=== PATIENT | female | born 1955 | race Caucasian/White ===

== ENCOUNTER → 2020-02-17 12:24 | Outpatient (CLI) | payer BC, SELFPAY ==
--- NOTE | ~2020-02-17 | MM_ITS ---
EXAMINATION: MM screening [facility] BI w yolanda HISTORY: Screening mammogram TECHNIQUE: Craniocaudal and mediolateral oblique 3-D tomosynthesis images were obtained and synthetic 2-D images were generated. CAD analysis was submitted and interpreted. COMPARISON: 12/13/2018 diagnostic left digital mammogram 12/04/2018, 12/29/2017, 12/27/2016 bilateral digital screening mammogram examinations BREAST PARENCHYMAL COMPOSITION: There are scattered areas of fibroglandular density. FINDINGS: There is no evidence of suspicious mass, calcification, or architectural distortion to sugg est malignancy in either breast. There has been no suspicious interval change. IMPRESSION: 1. No mammographic evidence of malignancy. 2. Recommend routine screening mammography in one year. BI-RADS Category 1: Negative Reviewed, dictated and finalized at location A.
== END ==
PROVIDERS: PCP Nurse Practitioner Adult Health; Visit Provider Nurse Practitioner Adult Health
DX: Z12.31 Encounter for screening mammogram for malignant neoplasm of breast (principal)
CPT/HCPCS: 77063; 77067

== ENCOUNTER → 2021-02-03 15:09 | Outpatient (CLI) | payer BC, SELFPAY ==
--- NOTE | ~2021-02-03 | MM_ITS ---
EXAMINATION: MM screening [facility] BI w yolanda HISTORY: Screening mammogram TECHNIQUE: Craniocaudal and mediolateral oblique 3-D tomosynthesis images were obtained and synthetic 2-D images were generated. CAD analysis was submitted and interpreted. COMPARISON: 02/17/2020 bilateral digital screening mammogram 12/13/2018 diagnostic left digital mammogram 12/04/2018, 12/29/2017, 12/27/2016, 12/15/2015 bilateral digital screening mammogram examinations BREAST PARENCHYMAL COMPOSITION: There are scattered areas of fibroglandular density. FINDINGS: Occasional bilateral benign calcifications... There is no evidence of suspicious mass, calc ification, or architectural distortion to suggest malignancy in either breast. There has been no susp icious interval change. IMPRESSION: 1. No mammographic evidence of malignancy. 2. Recommend routine screening mammography in one year. BI-RADS Category 2: Benign finding(s). Reviewed, dictated and finalized at location A. SIGHT SPECIALIST
== END ==
PROVIDERS: PCP Nurse Practitioner Adult Health; Visit Provider Nurse Practitioner Adult Health
DX: Z12.31 Encounter for screening mammogram for malignant neoplasm of breast (principal)
CPT/HCPCS: 77063; 77067

== ENCOUNTER → 2021-10-04 08:31 | Outpatient (CLI) | payer MEDICARE, BC, SELFPAY ==
[2021-10-04 19:00] LABS: SARS-CoV-2 RNA PCR Negative
== END ==
PROVIDERS: PCP Nurse Practitioner Adult Health; Visit Provider Nurse Practitioner Adult Health
DX: R05.9 Cough, unspecified (principal); Z20.822 Contact with and (suspected) exposure to COVID-19
CPT/HCPCS: C9803; U0003; U0005

== ENCOUNTER 2021-10-04 16:45 | Outpatient (CLI) | payer MEDICARE, BC, SELFPAY ==
--- NOTE | ~2021-10-04 | XR_ITS ---
EXAMINATION: XR chest 2V 10/04/2021 17:13 INDICATION: Cough PROCEDURE: 2 view chest COMPARISON: 03/02/2012 FINDINGS: The lungs are clear. The cardiomediastinal silhouette is within normal limits. There are no pleural effusions. There is no pneumothorax suspected. IMPRESSION: 1: NO ACUTE CARDIOPULMONARY DISEASE. Reviewed, dictated and finalized at location A. E OPERATOR
== END 2021-10-04 16:46 | disposition home or self-care (01) ==
LOC: ANHIMG 16:57
PROVIDERS: PCP Nurse Practitioner Adult Health; Visit Provider Nurse Practitioner Adult Health
DX: R05.9 Cough, unspecified (principal)
CPT/HCPCS: 71046; C9803; U0003; U0005

== ENCOUNTER → 2021-10-05 07:52 | Outpatient (CLI) | payer MEDICARE, BC, SELFPAY ==
[2021-10-05 10:25] LABS: Influenza Control Positive
== END ==
PROVIDERS: PCP Nurse Practitioner Adult Health; Visit Provider Nurse Practitioner Adult Health
DX: R05.9 Cough, unspecified (principal)
CPT/HCPCS: 87804

== ENCOUNTER → 2022-02-07 07:12 | Outpatient (CLI) | payer MEDICARE, BC, SELFPAY ==
--- NOTE | ~2022-02-07 | MM_ITS ---
EXAMINATION: MM screening [facility] w yolanda HISTORY: Screening mammogram, family history of breast cancer in her mother. TECHNIQUE: Craniocaudal and mediolateral oblique 3-D tomosynthesis images were obtained and synthetic 2-D images were generated. CAD analysis was submitted and interpreted. COMPARISON: 02/03/2021, 02/17/2020, 12/13/2018, 12/04/2018 BREAST PARENCHYMAL COMPOSITION: There are scattered areas of fibroglandular density. FINDINGS: There is no evidence of suspicious mass, calcification, or architectural distortion to sugg est malignancy in either breast. There has been no suspicious interval change. IMPRESSION: 1. No mammographic evidence of malignancy. 2. Recommend routine screening mammography in one year. BI-RADS Category 1: Negative Reviewed, dictated and finalized at location A.
== END ==
PROVIDERS: PCP Nurse Practitioner Adult Health; Visit Provider Nurse Practitioner Adult Health
DX: Z12.31 Encounter for screening mammogram for malignant neoplasm of breast (principal)
CPT/HCPCS: 77063; 77067

== ENCOUNTER → 2023-02-10 07:14 | Outpatient (CLI) | payer MEDICARE, BC, SELFPAY ==
--- NOTE | ~2023-02-10 | MM_ITS ---
EXAMINATION: MM screening [facility] BI w yolanda HISTORY: Screening mammogram TECHNIQUE: Craniocaudal and mediolateral oblique 3-D tomosynthesis images were obtained and synthetic 2-D images were generated. CAD analysis was submitted and interpreted. COMPARISON: 02/07/2022, 02/03/2021, 02/17/2020 bilateral screening mammogram examinations BREAST PARENCHYMAL COMPOSITION: There are scattered areas of fibroglandular density. FINDINGS: Occasional bilateral benign calcifications. There is no evidence of suspicious mass, calcif ication, or architectural distortion to suggest malignancy in either breast. There has been no suspic ious interval change. IMPRESSION: 1. No mammographic evidence of malignancy. 2. Recommend routine screening mammography in one year. BI-RADS Category 2: Benign finding(s). Reviewed, dictated and finalized at location A.
== END ==
PROVIDERS: PCP Nurse Practitioner Family; Visit Provider Nurse Practitioner Family
DX: Z12.31 Encounter for screening mammogram for malignant neoplasm of breast (principal)
CPT/HCPCS: 77063; 77067

== ENCOUNTER 2024-01-18 15:46 | Emergency (ER) | payer MEDICARE, BC, SELFPAY ==
--- NOTE | ~2024-01-18 | XR_ITS ---
EXAMINATION: XR knee RT min 4V DATE: 01/18/2024 16:18 INDICATION: Right knee injury. TECHNIQUE: 5 views of right knee were obtained. COMPARISON: Right knee radiographs 03/02/2012 FINDINGS: Bone alignment is normal. No fracture. There is mild tricompartmental osteoarthritis. No kn ee joint effusion. IMPRESSION: 1. Mild right knee osteoarthritis. Reviewed, dictated and finalized at location E. COORDINATOR
--- NOTE | 2024-01-18 15:47 | ED.FALL ---
HPI - Fall General Chief Complaint: Extremity Injury, Lower Stated Complaint: FALL Time Seen by Provider: 01/18/24 15:46 Source: patient Mode of arrival: ambulatory Limitations: no limitations History of Present Illness HPI Narrative: Domenico is a 68-year-old female patient presenting to the clinic today with complaints of a fal from her porch onto concrete injuring the right knee. She has abrasions to the right knee with some bruising and swelling to the is superior anterior knee. Related Data Home Medications Medication Instructions Recorded Confirmed multivitamin (Multiple Vitamins 1 tablet PO DAILY 04/14/20 01/18/24 tablet) simvastatin 10 mg tablet 10 mg PO DAILY 04/14/20 01/18/24 triamterene 75 1 tablet PO DAILY 08/08/23 01/18/24 mg-hydrochlorothiazide 50 mg tablet Allergies Allergy/AdvReac Type Severity Reaction Status Date / Time No Known Allergies Allergy Mild Verified 01/18/24 15:48 Review of Systems Review of Systems: Pertinent positives per HPI. Patient denies any fever, chills, rash, headache, visual changes, dizziness, cough, runny nose, sore throat, shortness of breath, chest pain, palpitations, nausea, vomiting, diarrhea, constipation, abdominal pain, or any urinary issues. [facility] Past Medical History Medical History (Updated 01/18/24 @ 16:02 by Henrry Rodriguez APRN) Hypertension Surgical History Surgical History History of colonoscopy History of dilation and curettage Family History Family History Mother Breast cancer Social History Social History Smoking status: Never smoker Alcohol intake: never Substance use: never Comments At the time of my signature, I reviewed and agree with the nursing past medical, surgical, social, and family history. There is no relevant family history pertinent to the patient complaint. Exam Narrative: General: Well-developed, well nourished, in no apparent distress Head: Normocephalic, atraumatic. Cardio: Regular rate and rhythm, s1 and s2 normal, no murmur appreciated. Resp: Clear to auscultation bilaterally, no rhonchi, rales, wheezing or rubs. Musculoskeletal: No deformity, tender to palpation over the superior anterior knee, bruising and swelling noted to the superior anterior knee, abrasions to the anterior knee, grossly normal range of motion, muscle strength strong and equal, peripheral pulse strong, no edema, no cyanosis, normal gait and station Course Course Emergency Course: Portions of this record may have been created with voice recognition software. Level of Care: Express Care Visit Vital Signs Vital signs: Vital signs reviewed MDM - Fall MDM Narrative Medical decision making narrative: At the time of visit patient is resting comfortably on the exam table. Patient appears to be nontoxic. Diagnostics: Right knee x-ray was performed and is negative for any sign of fracture or malalignment. Does show some mild tricompartmental osteoarthritis Plan: supportive measures were discussed with the patient and they voiced understanding discharge instructions and agrees to treatment plan. Return precautions reviewed Differential Diagnosis Differential diagnosis: Likely other (Ground level fall, knee contusion, knee fracture, knee abrasion) Imaging Data Radiologist's impression: ITS Impressions Knee X-Ray 01/18/24 16:18 IMPRESSION: 1. Mild right knee osteoarthritis. Discharge Plan Discharge Clinical Impression: Contusion of knee, right Qualifiers: Encounter type: initial encounter Qualified Code(s): S80.01XA - Contusion of right knee, initial encounter Abrasion of knee, right Qualifiers: Encounter type: initial encounter Qualified Code(s): S80.211A - Abrasion, right knee, initial encounter Fall with injury
[2024-01-18 15:50] VITALS: BP 149/65; PULSE 77; RESP 18; TEMP 37.2; O2SAT 99
== END 2024-01-18 16:30 | disposition home or self-care (01) ==
PROVIDERS: Emergency Provider Nurse Practitioner Family; PCP Family Medicine
DX: S80.01XA Contusion of right knee, initial encounter (principal); S80.211A Abrasion, right knee, initial encounter; I10 Essential (primary) hypertension; W17.89XA Other fall from one level to another, initial encounter
CPT/HCPCS: 73564; 99213; G0463

== ENCOUNTER 2024-02-12 07:14 | Outpatient (CLI) | payer MEDICARE, BC, SELFPAY ==
--- NOTE | ~2024-02-12 | MM_ITS ---
EXAMINATION: MM screening [facility] BI w yolanda HISTORY: Screening TECHNIQUE: Craniocaudal and mediolateral oblique 3-D tomosynthesis images were obtained and synthetic 2-D images were generated. CAD analysis was submitted and interpreted. COMPARISON: Comparison to multiple prior studies sequentially, with oldest reviewed study dated 06/2019. BREAST PARENCHYMAL COMPOSITION: Not dense: There are scattered areas of fibroglandular density. FINDINGS: There is no evidence of suspicious mass, calcification, or architectural distortion to sugg est malignancy in either breast. There has been no suspicious interval change. IMPRESSION: 1. No mammographic evidence of malignancy. 2. Recommend routine screening mammography in one year. BI-RADS Category 1: Negative Reviewed, dictated and finalized at location A.
== END 2024-02-12 07:15 ==
PROVIDERS: PCP Nurse Practitioner Family; Visit Provider Nurse Practitioner Family
DX: Z12.31 Encounter for screening mammogram for malignant neoplasm of breast (principal)
CPT/HCPCS: 77063; 77067

== ENCOUNTER 2024-08-19 14:06 | Outpatient (CLI) | payer MEDICARE, BC, SELFPAY ==
--- NOTE | ~2024-08-19 | CT_ITS ---
EXAMINATION: CT brain wo/w con DATE: 08/19/2024 14:44 INDICATION: Expressive language disorder. TECHNIQUE: Computed tomography (CT) of the head was performed without and with 100 mL Omnipaque 350 i ntravenous contrast. The mA was adjusted according to patient size. Iterative reconstruction techniqu e was employed. The dose-length product was 1199.14 mGy-cm. COMPARISON: None FINDINGS: There is no intracranial hemorrhage, acute infarction, or abnormal intracranial mass lesion . The ventricles are normal in size. The orbits are normal. The paranasal sinuses are clear. The mast oid air cells are normal. IMPRESSION: 1. Normal brain. Reviewed, dictated and finalized at location A. IMPRESSION: 1. Normal brain.
[2024-08-19 14:27] LABS: Estimated Glomerular Filt Rate 55
== END 2024-08-19 14:07 | disposition home or self-care (01) ==
LOC: MICIMG 14:07
DX: F80.1 Expressive language disorder (principal)
CPT/HCPCS: 70470; Q9967

== ENCOUNTER 2025-02-13 07:18 | Outpatient (CLI) | payer MEDICARE, BC, SELFPAY ==
--- NOTE | ~2025-02-13 | MM_ITS ---
EXAMINATION: MM screening [facility] BI w yolanda HISTORY: Screening TECHNIQUE: Craniocaudal and mediolateral oblique 3-D tomosynthesis images were obtained and synthetic 2-D images were generated. CAD analysis was submitted and interpreted. COMPARISON: Comparison to multiple prior studies sequentially, with oldest reviewed study dated 02/16. BREAST PARENCHYMAL COMPOSITION: Not dense: There are scattered areas of fibroglandular density. FINDINGS: There is no evidence of suspicious mass, calcification, or architectural distortion to sugg est malignancy in either breast. There has been no suspicious interval change. IMPRESSION: 1. No mammographic evidence of malignancy. 2. Recommend routine screening mammography in one year. BI-RADS Category 1: Negative Reviewed, dictated and finalized at location B.
== END 2025-02-13 07:19 | disposition home or self-care (01) ==
LOC: MICIMG 07:19
DX: Z12.31 Encounter for screening mammogram for malignant neoplasm of breast (principal)
CPT/HCPCS: 77063; 77067

== ENCOUNTER 2025-11-21 12:02 | Emergency (ER) | payer MEDICARE, BC, SELFPAY ==
[2025-11-21 12:17] VITALS: BP 135/62; PULSE 77; RESP 16; TEMP 36.5; O2SAT 100
--- NOTE | 2025-11-21 12:25 | ED.URI ---
HPI - URI/Sore Throat General Chief Complaint: Upper Respiratory Infection Stated Complaint: Sinus Source: patient Mode of arrival: ambulatory Limitations: no limitations History of Present Illness HPI Narrative: This is a 70 y/o female that presents to the Urgent care with reports of cough, sinus congestion, fever, body aches since monday. patient states her was here previously today and tested positive for COVID. she was concerned she may have COVID as well and wanted tested. patient reports no chest pain, shortness a breath, distress. She denies any headache or dizziness. Patient reports she did have seen the [place] yesterday, she states her symptoms are not nearly as bad as they are this morning. MD elicited complaint: fever, cough, sore throat and nasal congestion Onset (ago): day(s) (5) Consistency: constant Severity: mild Description of mucous: clear Able to tolerate fluids by mouth: Yes Exacerbating factors: nothing Relieving factors: nothing Context: sick contacts Associated symptoms: denies other symptoms Related Data Home Medications ?Medication ?Instructions ?Recorded ?Confirmed ?Last Taken ?Type multivitamin (Multiple Vitamins 1 tablet PO DAILY 04/14/20 09/04/25 Unknown History tablet) simvastatin 10 mg tablet 10 mg PO DAILY 04/14/20 09/04/25 Unknown History losartan 100 1 tablet PO DAILY 09/04/25 09/04/25 Unknown History mg-hydrochlorothiazide 25 mg tablet ketorolac 0.5 % eye drops drp 11/21/25 Unknown History ofloxacin 0.3 % eye drops drp 11/21/25 Unknown History prednisolone acetate 1 % eye drp 11/21/25 Unknown History drops,suspension semaglutide (weight loss) 0.5 mg subcut 11/21/25 Unknown History mg/0.5 mL subcutaneous pen injector (Wegovy) Allergies Allergy/AdvReac Type Severity Reaction Status Date / Time No Known Allergies Allergy Mild Verified 11/21/25 12:23 Review of Systems Review of Systems: All systems reviewed & are unremarkable except as noted in HPI and below PMFSH Past Medical History Medical History Cancer of skin of leg Hypertension Surgical History Surgical History History of dilation and curettage History of colonoscopy Family History Family History Mother Breast cancer Social History Social History Smoking status: Never smoker Alcohol intake: never Substance use: never Exam Const: General: healthy appearing Nutritional Appearance: well nourished Orientation/consciousness: patient oriented x3 Limitations: no limitations HENMT: Head: normal to inspection Ears: external ears normal Face/Nose/Sinus: Nasal discharge present clear Face and sinus: sinus tenderness maxillary Mouth: Yes Normal oral and palatal mucosa present Teeth and gingiva: dentition normal Throat: posterior oropharynx normal Eyes: Conjunctivae: conjunctivae normal Pupils: Equal, round and reactive pupils present EOM: EOMs intact bilaterally Neck: Neck: normal visual inspection Chest: Chest palpation & inspection: normal inspection of the chest Resp: Effort & Inspection: normal respiratory effort Auscultation: clear to auscultation bilaterally Cardio: Rate: regular rate Rhythm: regular rhythm GI: GI Palp: Yes Soft to palpation Auscultation: normal bowel sounds Back/Spine/Pelvis: Back: no CVA tenderness Skin: General skin exam: normal color Rashes: no rashes Wounds: no wounds Neuro: General: patient oriented x3 Cranial nerves: Yes Nystagmus not present Speech: normal speech Gait exam (Neuro): Normal gait present Extrem: General: normal to inspection Psych: Mental Status: mental status grossly normal Affect: normal affect Attitude: cooperative Course Course Emergency Course: This is a 70 y/o female that presents to the Urgent care with reports of cough, sinus congestion, fever, body aches since monday. patient states her was here previously today and tested positive for COVID. she was concerned she may have COVID as well and wanted tested. patient reports no chest pain, shortness a breath, distress. She denies any headache or dizziness. Patient reports she did have seen the [place] yesterday, she states her symptoms are not nearly as bad as they are this morning. vitals stable COVID, Influenza testing ordered COVID 19 positive, influenza negative. Educated on COVID 19 positive. discussed treatment and management outpatient. patient educated on being contagious. Educated on follow up and when to present to the ER. answered questions to satisfaction, agreeable to plan. educated patient to Increase fluids Rest You ARE? contagious, please avoid? public places, immune compromise, elderly and younger patients. Continue with symptomatic management: -? Cough medication per package instructions -? Tylenol and motrin for fever and pain -? Cough drops for sore throat and cough -? Mucinex for congestion -? Vicks vapor rub -? Cool mist vaporizer Follow up with your primary MD in the next 2-3 days for further exam or Present to the ER for any worrisome sign or symptom patient denies any further needs or concerns to be addressed prior to discharge Level of Care: Express Care Visit Vital Signs Vital signs: Vital Signs Temperature 97.7 F 11/21/25 12:17 Pulse Rate 77 11/21/25 12:17 Respiratory Rate 16 11/21/25 12:17 Blood Pressure 135/62 11/21/25 12:17 Pulse Oximetry 100 11/21/25 12:17 Oxygen Delivery Room Air 11/21/25 12:17 Temperature 97.7 F 11/21/25 12:17 Pulse Rate 77 11/21/25 12:17 Respiratory Rate 16 11/21/25 12:17 Blood Pressure 135/62 11/21/25 12:17 Pulse Oximetry 100 11/21/25 12:17 Oxygen Delivery Room Air 11/21/25 12:17 MDM MDM Narrative Medical decision making narrative: This is a 70 y/o female that presents to the Urgent care with reports of cough, sinus congestion, fever, body aches since monday. patient states her was here previously today and tested positive for COVID. she was concerned she may have COVID as well and wanted tested. patient reports no chest pain, shortness a breath, distress. She denies any headache or dizziness. Patient reports she did have seen the [place] yesterday, she states her symptoms are not nearly as bad as they are this morning. vitals stable COVID, Influenza testing ordered COVID 19 positive, influenza negative. Educated on COVID 19 positive. discussed treatment and management outpatient. patient educated on being contagious. Educated on follow up and when to present to the ER. answered questions to satisfaction, agreeable to plan. educated patient to Increase fluids Rest You ARE? contagious, please avoid? public places, immune compromise, elderly and younger patients. Continue with symptomatic management: -? Cough medication per package instructions -? Tylenol and motrin for fever and pain -? Cough drops for sore throat and cough -? Mucinex for congestion -? Vicks vapor rub -? Cool mist vaporizer Follow up with your primary MD in the next 2-3 days for further exam or Present to the ER for any worrisome sign or symptom patient denies any further needs or concerns to be addressed prior to discharge Differential Diagnosis Differential Diagnosis: COVID Medical Records I have reviewed the following patient records and this information was taken into consideration when formulating the assessment and plan.: previous labs and previous clinic visits Lab Data MDM Lab Attestation statement: I personally reviewed the patient's lab results. Lab results narrative: covid positive influenza a&b negative Discharge Plan Discharge Clinical Impression: COVID-19 Patient Disposition: Home Condition: Stable Instructions: COVID-19 (Coronavirus Disease 2019) (ED) Additional Instructions: Increase fluids Rest You ARE? contagious, please avoid? public places, immune compromise, elderly and younger patients. Continue with symptomatic management: -? Cough medication per package instructions -? Tylenol and motrin for fever and pain -? Cough drops for sore throat and cough -? Mucinex for congestion -? Vicks vapor rub -? Cool mist vaporizer Follow up with your primary MD in the next 2-3 days for further exam or Present to the ER for any worrisome sign or symptom Patient Language: Swedish Prescriptions: No Action ofloxacin 0.3 % drops ketorolac 0.5 % drops prednisolone acetate 1 % drops,suspension [place]govy 0.5 mg/0.5 mL pen injector SUBCUT simvastatin 10 mg tablet 10 mg PO DAILY Rx Instructions: take 1 tablet by oral route every day in the evening. multivitamin [Multiple Vitamins] Tablet 1 tablet PO DAILY losartan-hydrochlorothiazide 100-25 mg tablet 1 tablet PO DAILY Follow-up/Referrals: Giuliano,Arpita Harkins APRN [Primary Care Provider, Unknown] Time of Disposition: 12:31
[2025-11-21 12:34] LABS: EDCOVIDSCREEN Positive (Negative); EDINFLUASCREEN Negative (Negative); EDINFLUBSCREEN Negative (Negative)
== END 2025-11-21 12:36 | disposition home or self-care (01) ==
PROVIDERS: Emergency Provider Nurse Practitioner Family
DX: U07.1 COVID-19 (principal); I10 Essential (primary) hypertension; Z79.899 Other long term (current) drug therapy
CPT/HCPCS: 87426; 87804; 99212; G0463